=== PATIENT | female | born 1995 ===

== ENCOUNTER 2017-12-17 | Inpatient (IN) ==
[2017-12-20 07:15] VITALS: BP 130/71
== END 2017-12-20 12:25 | disposition home or self-care (01) | DRG 540 ==
LOC: N.LDOUT → N.LD 00:01 → N.OB 12-18 10:25
PROVIDERS: ADMIT Obstetrics & Gynecology; ATTEND Obstetrics & Gynecology
PROC: LDCSECT (ICD-10-PCS; 2017-12-18 07:10)